=== PATIENT | female | born 1955 | race Caucasian/White ===

== ENCOUNTER 2019-03-09 07:24 | Outpatient (CLI) | payer MEDICARE ==
--- NOTE | 2019-03-09 10:14 | CT ---
CT CHEST AND ABDOMEN AND PELVIS WITH IV CONTRAST: INDICATIONS: Malignant neoplasm, left breast. COMPARISON: There are no comparison studies. TECHNIQUE: Multiple axial tomograms obtained of the chest, abdomen, and pelvis with IV enhancement. Oral contra st was administered. FINDINGS: CHEST: There is a small, 3 mm nodule, right upper lobe, which is nonspecific. The lungs otherwise a ppear clear. No other evidence of nodule or mass. No effusion or infiltrate. The mediastinum is unremarkable. No adenopathy. Mild atherosclerotic changes in the thoracic aorta. Review of the chest soft tissues reveals numerous nodular masses in the peripheral left breast, measu ring 1 to 1.5 cm. There is a larger mass with slight spiculation in the posterolateral left breast, measuring 3 cm, probably representing the known malignancy. There is left axillary adenopathy. At least one left axillary lymph node measures 1.8 cm in AP dimen luli. There are other adjacent smaller axillary lymph nodes on the left. No evidence of right axill selene adenopathy. No right breast mass identified. The osseous structures of the thorax appear unremarkable. ABDOMEN AND PELVIS: The liver, spleen, and pancreas are unremarkable. The stomach and duodenum are unremarkable. The adrenal glands are normal. The kidneys are unremarkable. The urinary bladder is unremarkable. Small bowel loops appear normal. There is stool throughout the colon. Mild diverticulosis of the le ft colon. The aorta is of normal caliber. No evidence of adenopathy. Images through the pelvis reveal an enlarged uterus with numerous calcifications of the uterine fundu s, which involve a rounded fundal mass, which measures up to 6 cm in diameter, suggesting a large, pa rtially calcified fibroid. Adnexa are unremarkable. Osseous structures are unremarkable. Degenerat rayne changes in the lumbar spine. IMPRESSION: 1. Numerous rounded masses at the lateral left breast, as described above, with a large mass with sp iculation in the posterolateral left breast, measuring up to 3 cm. 2. Left axillary adenopathy. 3. Tiny, nonspecific nodule in the right upper lobe, measuring 3 mm. The lung leon are otherwise clear. 4. Evidence of a large, partially calcified uterine fibroid. 5. CT abdomen and pelvis otherwise unremarkable. POS: [facility]
[2019-03-09] MEDS ORDERED: Iopamidol 370 76% 100 ML VIAL ONE (10:22)
--- NOTE | 2019-03-09 11:57 | NM ---
Whole body bone scan [employer]: 32.8 mCi, technetium 99m MDP IV. CLINICAL HISTORY: Malignant neoplasm of central portion of left female breast FINDINGS: There are foci of degenerative activity at the axial and appendicular skeleton. There is no scintigraphic evidence of osseous metastatic disease identified. IMPRESSION: No scintigraphic evidence of osseous metastases.
== END 2019-03-09 07:25 | disposition home or self-care (01) ==
LOC: CT 07:24
PROVIDERS: ATTEND Internal Medicine Hematology & Oncology
DX: C50.112 Malignant neoplasm of central portion of left female breast (principal); D25.9 Leiomyoma of uterus, unspecified; N63.20 Unspecified lump in the left breast, unspecified quadrant; R59.1 Generalized enlarged lymph nodes; R91.1 Solitary pulmonary nodule
CPT/HCPCS: 71260; 74177; 78306; 82565; A9503; Q9967

== ENCOUNTER 2019-06-23 08:01 | Day surgery (SDC) | payer MEDICARE ==
[~2019-06-23 08:01] MED LIST: Acetaminophen 500 MG TAB PO SCH; diphenhydrAMINE 25 MG CAP PO SCH
[2019-06-23 11:39] LABS: Hemoglobin 8.1 g/dL (12.0-16.0)
[2019-06-23] MEDS ORDERED: Sodium Chloride 0.9% 20 ML ONE (13:53)
[2019-06-23 14:34] VITALS: BP 175/72; TEMP 98.4
== END 2019-06-23 14:34 | disposition home or self-care (01) ==
LOC: ONC/OP 08:01
PROVIDERS: ATTEND Internal Medicine Hematology & Oncology
PROC: 30233R1 Transfusion of Nonautologous Platelets into Peripheral Vein, Percutaneous Approach (ICD-10-PCS; principal; 2019-06-23)
PROC: 30233N1 Transfusion of Nonautologous Red Blood Cells into Peripheral Vein, Percutaneous Approach (ICD-10-PCS; 2019-06-23)
DX: D64.9 Anemia, unspecified (principal); D69.6 Thrombocytopenia, unspecified
CPT/HCPCS: 36430; 85014; 85018; 86850; 86900; 86901; J1642; P9016; Q0163

== ENCOUNTER → 2019-09-09 | Day surgery (SDC) | payer MEDICARE ==
--- NOTE | 2019-09-09 09:39 | NM ---
NM Lymphoscintigraphy HISTORY: Malignant neoplasm of unspecified site of the unspecified female breast. [employer]: 390 uCi of technetium 99m filtered sulfur colloid. Right periareolar injection in divided doses. FINDINGS: There are at least 2 lymph nodes visualized in the right axilla. No lymph nodes are seen in the left axilla or the internal mammary chains. IMPRESSION: [place] lymph node(s) in the right axilla.
== END ==
LOC: NM 07:21
PROVIDERS: ATTEND Pain Medicine Pain Medicine
DX: C50.911 Malignant neoplasm of unspecified site of right female breast (principal)
CPT/HCPCS: 78195; A9541

== ENCOUNTER 2024-10-12 19:54 | Inpatient (IN) | payer MEDICARE ==
[2024-10-12] MEDS ORDERED: Ondansetron PF 4 MG/2 ML Vial IVP PRN (21:06)
[2024-10-12] MEDS ORDERED: Acetaminophen 325 MG TAB PO PRN (21:06)
[2024-10-12] MEDS ORDERED: Dextrose 5% in Water 1,000 ML IV PRN (21:12)
[2024-10-12] MEDS ORDERED: Dextrose 50% Abboject 50 ML SYRINGE SLOW IVP PRN (21:12)
[2024-10-12] MEDS ORDERED: Glucagon 1 MG/ML KIT IM PRN (21:12)
[2024-10-12] MEDS ORDERED: Insulin Lispro 100 UNIT/ML 10 ML VIAL SC PRN (21:12)
[2024-10-12] MEDS ORDERED: Heparin 10,000 UNITS/ 10 ML VIAL SLOW IVP SCH (21:15)
[2024-10-12 21:49] VITALS: BMI 31.1
[2024-10-13 01:53] LABS: #Basophils 0.09 10x3/uL (0.0-0.2); %Basophils 1.1 % (0.0-1.0); %Eosinophils 1.8 % (0.0-10.0); %Lymphocytes 16.2 % (21.0-51.0); %Monocytes 6.3 % (0.0-10.0); %Neutrophils 74.2 % (42.0-75.0); Hematocrit 38.9 % (36.0-47.0); Mean Corpuscular HGB CONC 30.8 g/dL (32.0-36.0); Mean Corpuscular Hemoglobin 26.4 pg (27.0-31.0); Mean Corpuscular Volume 85.5 fL (78.0-98.0); Mean Platelet Volume 11.7 fL (7.4-10.4); Platelet Count 140 10x3/uL (130-400); RBC Distribution Width 17.4 % (11.5-14.5); Red Blood Cell (RBC) Count 4.55 mill/uL (4.20-5.40)
[2024-10-13 02:34] LABS: PTT Greater than 250.0 sec (22.9-36.1)
[2024-10-13 02:37] LABS: Anion Gap 16 mmol/L (10-20); BUN (Urea Nitrogen) 33 mg/dL (9.8-20.1); Calc. Creatinine Clearance 41 mL/min (70-130); Calcium 8.8 mg/dL (7.8-10.44); Carbon Dioxide 20 mmol/L (23-31); Chloride 110 mmol/L (98-107); Estimated GFR 33; Glucose 117 mg/dL (83-110); Sodium 142 mmol/L (136-145)
[2024-10-13] MEDS: Lactated Ringer's 1,000 ML IV SCH (04:47)
[2024-10-13] MEDS: Pregabalin 75 MG CAP PO SCH (08:12)
[2024-10-13] MEDS: BuPROPion XL 150 MG ER.TAB PO SCH (08:12)
[2024-10-13 12:47] LABS: PTT 166.2 sec (22.9-36.1)
[2024-10-13] MEDS: Heparin 25,000 units/D5W 500 ML IVPB SCH (18:22)
[2024-10-13] MEDS: Insulin Glargine 30 UNITS/0.3 ML VIAL SC SCH (20:02)
[2024-10-14 05:48] LABS: Anion Gap 15 mmol/L (10-20); BUN (Urea Nitrogen) 18 mg/dL (9.8-20.1); Calc. Creatinine Clearance 62 mL/min (70-130); Calcium 8.9 mg/dL (7.8-10.44); Carbon Dioxide 21 mmol/L (23-31); Chloride 109 mmol/L (98-107); Estimated GFR 53; Glucose 136 mg/dL (83-110); Sodium 141 mmol/L (136-145)
[2024-10-14 05:57] LABS: #Basophils 0.06 10x3/uL (0.0-0.2); %Basophils 0.8 % (0.0-1.0); %Eosinophils 1.5 % (0.0-10.0); %Lymphocytes 11.5 % (21.0-51.0); %Monocytes 5.8 % (0.0-10.0); Hematocrit 37.8 % (36.0-47.0); Hemoglobin 11.8 g/dL (12.0-16.0); Mean Corpuscular HGB CONC 31.2 g/dL (32.0-36.0); Mean Corpuscular Hemoglobin 26.2 pg (27.0-31.0); Mean Corpuscular Volume 83.8 fL (78.0-98.0); Platelet Count 143 10x3/uL (130-400); RBC Distribution Width 17.5 % (11.5-14.5); Red Blood Cell (RBC) Count 4.51 mill/uL (4.20-5.40)
[2024-10-14] MEDS: Insulin Lispro 100 UNIT/ML 10 ML VIAL SC PRN (11:57)
[2024-10-15 05:15] LABS: #Basophils 0.09 10x3/uL (0.0-0.2); %Basophils 1.2 % (0.0-1.0); %Eosinophils 1.5 % (0.0-10.0); %Lymphocytes 9.1 % (21.0-51.0); %Monocytes 6.7 % (0.0-10.0); Hematocrit 38.3 % (36.0-47.0); Hemoglobin 11.9 g/dL (12.0-16.0); Mean Corpuscular HGB CONC 31.1 g/dL (32.0-36.0); Mean Corpuscular Hemoglobin 26.3 pg (27.0-31.0); Mean Corpuscular Volume 84.5 fL (78.0-98.0); Mean Platelet Volume 11.7 fL (7.4-10.4); Platelet Count 138 10x3/uL (130-400); RBC Distribution Width 17.3 % (11.5-14.5); Red Blood Cell (RBC) Count 4.53 mill/uL (4.20-5.40)
[2024-10-15 05:26] LABS: Anion Gap 12 mmol/L (10-20); BUN (Urea Nitrogen) 17 mg/dL (9.8-20.1); Calc. Creatinine Clearance 57 mL/min (70-130); Calcium 9.1 mg/dL (7.8-10.44); Carbon Dioxide 21 mmol/L (23-31); Chloride 110 mmol/L (98-107); Estimated GFR 48; Glucose 131 mg/dL (83-110); Potassium 4.2 mmol/L (3.5-5.1); Sodium 139 mmol/L (136-145)
[2024-10-15] MEDS: Apixaban 5 MG TAB PO SCH (08:25)
[2024-10-15] MEDS: Losartan 25 MG TAB PO SCH (08:25)
[2024-10-15 12:24] VITALS: BP 102/50; TEMP 98.5
[2024-10-22] MEDS ORDERED: Apixaban 5 MG TAB PO SCH (09:00)
== END 2024-10-15 11:00 | disposition home or self-care (01) | DRG 300 ==
LOC: PCU 19:56
PROVIDERS: ADMIT Internal Medicine; ATTEND Family Medicine
DX: I82.401 Acute embolism and thrombosis of unspecified deep veins of right lower extremity (principal); N17.9 Acute kidney failure, unspecified; I12.9 Hypertensive chronic kidney disease with stage 1 through stage 4 chronic kidney disease, or unspecified chronic kidney disease; E11.22 Type 2 diabetes mellitus with diabetic chronic kidney disease; Z85.3 Personal history of malignant neoplasm of breast; N18.30 Chronic kidney disease, stage 3 unspecified; Z98.890 Other specified postprocedural states; Z79.899 Other long term (current) drug therapy; Z79.4 Long term (current) use of insulin; Z79.1 Long term (current) use of non-steroidal anti-inflammatories (NSAID)
CPT/HCPCS: 36415; 36416; 71045; 80048; 80053; 85025; 85379; 85610; 85730; 93005; 96365; 96376; J1644; J1815

== ENCOUNTER 2024-10-16 22:58 | Emergency (ER) | payer MEDICARE ==
[2024-10-17 01:12] LABS: #Basophils 0.04 10x3/uL (0.0-0.2); %Basophils 0.4 % (0.0-1.0); %Eosinophils 0.6 % (0.0-10.0); %Lymphocytes 1.4 % (21.0-51.0); %Monocytes 4.1 % (0.0-10.0); %Neutrophils 93.1 % (42.0-75.0); Hemoglobin 11.8 g/dL (12.0-16.0); Mean Corpuscular HGB CONC 31.1 g/dL (32.0-36.0); Mean Corpuscular Hemoglobin 26.4 pg (27.0-31.0); Mean Platelet Volume 13.2 fL (7.4-10.4); Platelet Count 140 10x3/uL (130-400); RBC Distribution Width 17.5 % (11.5-14.5); Red Blood Cell (RBC) Count 4.47 mill/uL (4.20-5.40)
[2024-10-17] MEDS ORDERED: Acetaminophen 500 MG TAB ONE (01:20)
[2024-10-17 01:27] LABS: ALT (SGPT) 15 U/L (8-55); AST (SGOT) 21 U/L (5-34); Albumin 3.8 g/dL (3.4-4.8); Alkaline Phosphatase 55 U/L (40-110); Anion Gap 14 mmol/L (10-20); BUN (Urea Nitrogen) 30 mg/dL (9.8-20.1); Bilirubin, Total 0.6 mg/dL (0.2-1.2); Calc. Creatinine Clearance 0 mL/min (70-130); Calcium 9.6 mg/dL (7.8-10.44); Carbon Dioxide 22 mmol/L (23-31); Chloride 108 mmol/L (98-107); Estimated GFR 38; Globulin 2.5 g/dL (2.4-3.5); Glucose 112 mg/dL (83-110); Lipase 52 U/L (8-78); Potassium 4.1 mmol/L (3.5-5.1); Protein, Total 6.3 g/dL (5.8-8.1); Sodium 140 mmol/L (136-145)
[2024-10-17 05:21] LABS: Troponin I 0.026 ng/mL (< 0.028)
[2024-10-17 06:28] LABS: Bacteria/HPF 4+ HPF (None Seen); Bilirubin Negative (Negative); Blood, Urine Negative (Negative); CAUTI Indications for Culture Alt mental st,lethar; Clarity Turbid (Clear); Glucose, Urine (Dipstick) Normal (Negative); Ketone, Urine Negative (Negative); Leukocyte 250 Leu/uL (Negative); Nitrite Negative (Negative); Protein, Urine (Dipstick) 10 mg/dL (Neg-Trace); RBC/HPF 0-3 HPF (0-3); Squamous Epithelial 0-3 HPF (0-3); Urobilinogen Normal mg/dL (Less than 2); WBC/HPF Greater than 50 HPF (0-3); pH, Urine 5.5 (5.0-9.0)
[2024-10-17 06:31] LABS: Urine Culture Reflex Yes Yes
[2024-10-17] MEDS ORDERED: cefTRIAXone (ROCEPHIN) 1 GM VIAL ONE (06:48)
[2024-10-17] MEDS ORDERED: Sodium Chloride 0.9% 100 ML ONE (06:48)
== END 2024-10-17 07:35 | disposition home or self-care (01) ==
LOC: ERS 22:58
DX: N39.0 Urinary tract infection, site not specified (principal); I82.402 Acute embolism and thrombosis of unspecified deep veins of left lower extremity; R11.2 Nausea with vomiting, unspecified; E11.40 Type 2 diabetes mellitus with diabetic neuropathy, unspecified
CPT/HCPCS: 71045; 80053; 81001; 83605; 83690; 84484 ×2; 85025; 87040; 87077; 87086; 87149 ×2; 87428; 93005; J0696; 36415; 51701; 87186; 96361; 96365

== ENCOUNTER 2025-06-21 08:00 | Day surgery (SDC) | payer MEDICARE ==
[2025-06-20 13:49] VITALS: BMI 26.6
[~2025-06-21 08:00] MED LIST changes: -Acetaminophen 500 MG TAB PO SCH; +EPINEPHrine 0.3 MG in Ophthalmic Irrigation Solution 500 ML IRR SCH; -diphenhydrAMINE 25 MG CAP PO SCH
[2025-06-21] MEDS ORDERED: Cyclopentolate 1% Opth Drop 2 ML BOT ONE (08:30)
[2025-06-21 09:25] LABS: #Basophils 0.14 10x3/uL (0.0-0.2); #Eosinophils 0.17 10x3/uL (0.0-0.7); #Monocytes 0.54 10x3/uL (0.11-0.59); #Neutrophils 6.16 10x3/uL (1.40-6.50); %Basophils 1.7 % (0.0-1.0); %Eosinophils 2.1 % (0.0-10.0); %Lymphocytes 12.3 % (21.0-51.0); %Monocytes 6.7 % (0.0-10.0); %Neutrophils 77.0 % (42.0-75.0); Hematocrit 42.0 % (36.0-47.0); Hemoglobin 13.1 g/dL (12.0-16.0); Mean Corpuscular Hemoglobin 24.4 pg (27.0-31.0); Mean Corpuscular Volume 78.2 fL (78.0-98.0); Platelet Count 275 10x3/uL (130-400); Red Blood Cell (RBC) Count 5.37 mill/uL (4.20-5.40); White Blood Cell (WBC) Count 8.02 10x3/uL (4.8-10.8)
[2025-06-21 09:44] LABS: Anion Gap 16 mmol/L (10-20); BUN (Urea Nitrogen) 21 mg/dL (9.8-20.1); Calc. Creatinine Clearance 60 mL/min (70-130); Calcium 8.9 mg/dL (7.8-10.44); Carbon Dioxide 20 mmol/L (23-31); Chloride 112 mmol/L (98-107); Glucose 109 mg/dL (83-110); Potassium 4.5 mmol/L (3.5-5.1); Sodium 143 mmol/L (136-145)
[2025-06-21] MEDS ORDERED: Lidocaine 1% PF 5 ML VIAL ONE ×2 (09:54→10:44)
[2025-06-21] MEDS ORDERED: Rocuronium Bromide 10 MG/ML (10ML VIAL) ONE (09:54)
[2025-06-21] MEDS ORDERED: Ondansetron PF 4 MG/2 ML Vial ONE (09:54)
[2025-06-21] MEDS ORDERED: PROPOFOL 20 ML ONE (09:54)
[2025-06-21] MEDS ORDERED: Maxitrol 0.1% Opth Oint 3.5 GM TUBE ONE (10:44)
[2025-06-21] MEDS ORDERED: Lidocaine 4% PF 5 ML AMP ONE (10:44)
[2025-06-21] MEDS ORDERED: CEFAZOLIN 1 GM VIAL ONE (10:44)
[2025-06-21] MEDS ORDERED: SUGAMMADEX SODIUM 200 MG/2 ML VIAL ONE (11:05)
== END 2025-06-21 13:18 | disposition home or self-care (01) ==
LOC: SDC 08:00
PROVIDERS: ATTEND Ophthalmology Retina Specialist
PROC: 08T53ZZ Resection of Left Vitreous, Percutaneous Approach (ICD-10-PCS; principal; 2025-06-21)
DX: H33.022 Retinal detachment with multiple breaks, left eye (principal); Z96.1 Presence of intraocular lens; Z98.41 Cataract extraction status, right eye; Z98.42 Cataract extraction status, left eye
CPT/HCPCS: 67025; 67108; 80048; 85025; J0166; J0690; J1100; J2405; J2704; J3010; J3301; J3490